=== PATIENT | female | born 1940 | race Caucasian/White ===

== ENCOUNTER 2019-09-28 09:01 | Day surgery (SDC) | payer MEDICARE, OTHER ==
[2019-09-27 14:01] VITALS: BMI 31.2
[~2019-09-28 09:01] MED LIST: Fluorouracil 100 MG, Enoxaparin Sodium 25 MG, EPINEPHrine 0.3 MG in Ophthalmic Irrigati... IRR SCH
[2019-09-28] MEDS ORDERED: Cyclopentolate 1% Opth Drop 2 ML BOT ONE (09:28)
[2019-09-28] MEDS ORDERED: Phenylephrine 2.5% Ophth Soln 5 ML BOT ONE (09:28)
[2019-09-28] MEDS ORDERED: Midazolam HCl 2 mg/2 ml Vial ONE ×2 (09:38→12:06)
[2019-09-28] MEDS ORDERED: Fentanyl 100 MCG/2 ML VIAL ONE (09:38)
[2019-09-28] MEDS ORDERED: PROPOFOL 20 ML ONE (09:38)
[2019-09-28] MEDS ORDERED: CEFAZOLIN 1 GM VIAL ONE (10:20)
[2019-09-28] MEDS ORDERED: Lidocaine 4% PF 5 ML AMP ONE (10:20)
[2019-09-28] MEDS ORDERED: PROPOFOL 200 MG/20 ML VIAL ONE (10:20)
[2019-09-28] MEDS ORDERED: Triamcinolone 40 MG/ML VIAL ONE (10:20)
[2019-09-28] MEDS ORDERED: Maxitrol 0.1% Opth Oint 3.5 GM TUBE ONE (10:20)
[2019-09-28] MEDS ORDERED: Bupivacaine PF 0.75% SDV 10 ML ONE (10:20)
[2019-09-28] MEDS ORDERED: Lidocaine 1% PF 5 ML VIAL ONE (10:20)
--- NOTE | 2019-09-28 19:04 | OP ---
DATE OF PROCEDURE: 09/28/2019 PREOPERATIVE DIAGNOSIS: Epiretinal membrane, vitreomacular traction, left eye. POSTOPERATIVE DIAGNOSIS: Epiretinal membrane, vitreomacular traction, left eye. PROCEDURES PERFORMED: Pars plana vitrectomy with epiretinal membrane peel, left eye. ANESTHESIA: Local with monitored anesthesia care. DESCRIPTION OF PROCEDURE: The patient was identified in the preoperative holding area. Appropriate informed consent for the planned surgical procedure on the left eye had been obtained. The patient was transported to the operative suite. Appropriate cardiopulmonary monitoring was established. Local anesthesia was obtained using retrobulbar block. The patient was prepped and draped in usual sterile manner for ophthalmic surgery on the left eye. Lid speculum was placed in the left eye. A 25-gauge trocar was placed in conjunctiva and sclera superotemporally, inferotemporally, and supranasally. Infusion line was placed inferotemporally. Light pipe and vitreous cutter were inserted into the eye. Core vitrectomy was performed. Posterior hyaloid face was noted to be rigidly adherent to the retina. Triamcinolone was introduced into the eye to allow visualization of the vitreous strands and a pick was used to incise and elevate the posterior hyaloid face. This was peeled across the macula and into the mid periphery. Indirect ophthalmoscopy was used to examine the retina 360 degrees. No holes, breaks, or tears were identified. Intravitreal triamcinolone was placed as was subconjunctival Ancef was placed. Trocar was removed. Eye was noted to retain pressure well. Eye was patched and shielded. The patient was taken to postoperative recovery unit in good condition, having suffered no immediate perioperative complications. The patient was instructed to keep patch and shield on, avoid lifting or bending, and followup appointment with Dr. Navarro. Job ID: [id number]
== END 2019-09-28 13:28 | disposition home or self-care (01) ==
LOC: SDC 09:01
PROVIDERS: ATTEND Ophthalmology Retina Specialist
PROC: 08T53ZZ Resection of Left Vitreous, Percutaneous Approach (ICD-10-PCS; principal; 2019-09-28)
PROC: 08NF3ZZ Release Left Retina, Percutaneous Approach (ICD-10-PCS; 2019-09-28)
DX: H35.372 Puckering of macula, left eye (principal); H43.822 Vitreomacular adhesion, left eye; I10 Essential (primary) hypertension; E11.9 Type 2 diabetes mellitus without complications; K21.9 Gastro-esophageal reflux disease without esophagitis; M19.90 Unspecified osteoarthritis, unspecified site; Z79.4 Long term (current) use of insulin; Z79.899 Other long term (current) drug therapy; Z88.1 Allergy status to other antibiotic agents; Z88.2 Allergy status to sulfonamides; Z88.8 Allergy status to other drugs, medicaments and biological substances
CPT/HCPCS: 36416; J0171; J0690; J1650; J2001; J2250; J2704; J3010; J3301; J3490; J9190

== ENCOUNTER 2021-12-08 09:34 | Outpatient (CLI) | payer MEDICARE, OTHER ==
[2021-12-08 19:25] LABS: SARS-CoV-2 PCR by NAA Not Detected (NotDetected)
== END 2021-12-08 09:35 | disposition home or self-care (01) ==
LOC: LABBT 09:34
PROVIDERS: ATTEND Ophthalmology Retina Specialist
DX: Z01.812 Encounter for preprocedural laboratory examination (principal); H35.342 Macular cyst, hole, or pseudohole, left eye; H54.7 Unspecified visual loss; Z20.822 Contact with and (suspected) exposure to COVID-19
CPT/HCPCS: U0003; U0005

== ENCOUNTER 2021-12-15 15:20 | Outpatient (CLI) | payer MEDICARE, OTHER ==
[2021-12-16 00:43] LABS: SARS-CoV-2 PCR by NAA Not Detected (NotDetected)
== END 2021-12-15 15:21 | disposition home or self-care (01) ==
LOC: LABBT 15:20
PROVIDERS: ATTEND Ophthalmology Retina Specialist
DX: Z01.812 Encounter for preprocedural laboratory examination (principal); H35.342 Macular cyst, hole, or pseudohole, left eye; Z20.822 Contact with and (suspected) exposure to COVID-19
CPT/HCPCS: U0003; U0005

== ENCOUNTER 2021-12-18 09:46 | Day surgery (SDC) | payer MEDICARE, OTHER ==
[2021-12-08 14:29] VITALS: BMI 27.3
[~2021-12-18 09:46] MED LIST changes: +Fentanyl 100 MCG/2 ML VIAL ONE; +Midazolam HCl 2 mg/2 ml Vial ONE; +PROPOFOL 20 ML ONE
[2021-12-18] MEDS ORDERED: Phenylephrine 2.5% Ophth Soln 5 ML BOT ONE (10:11)
[2021-12-18] MEDS ORDERED: Cyclopentolate 1% Opth Drop 2 ML BOT ONE (10:11)
[2021-12-18] MEDS ORDERED: Lidocaine 1% PF 5 ML VIAL ONE (13:00)
[2021-12-18] MEDS ORDERED: Lidocaine 4% PF 5 ML AMP ONE (13:00)
[2021-12-18] MEDS ORDERED: Maxitrol 0.1% Opth Oint 3.5 GM TUBE ONE (13:00)
[2021-12-18] MEDS ORDERED: Indocyanine Green 25 MG/10 ML VIAL ONE (13:00)
[2021-12-18] MEDS ORDERED: CEFAZOLIN 1 GM VIAL ONE (13:00)
[2021-12-18] MEDS ORDERED: Bupivacaine PF 0.75% SDV 10 ML ONE (13:00)
[2021-12-18] MEDS ORDERED: Enoxaparin Sodium 30 MG/0.3 ML SYRINGE ONE (13:00)
== END 2021-12-18 14:37 | disposition home or self-care (01) ==
LOC: SDC 09:46
PROVIDERS: ATTEND Ophthalmology Retina Specialist
PROC: 08T53ZZ Resection of Left Vitreous, Percutaneous Approach (ICD-10-PCS; principal; 2021-12-18)
PROC: 08NF3ZZ Release Left Retina, Percutaneous Approach (ICD-10-PCS; 2021-12-18)
DX: H35.342 Macular cyst, hole, or pseudohole, left eye (principal); I10 Essential (primary) hypertension; E11.9 Type 2 diabetes mellitus without complications; E03.9 Hypothyroidism, unspecified; K21.9 Gastro-esophageal reflux disease without esophagitis; K58.9 Irritable bowel syndrome, unspecified; Z79.4 Long term (current) use of insulin; Z79.890 Hormone replacement therapy; Z79.899 Other long term (current) drug therapy; Z88.1 Allergy status to other antibiotic agents; Z88.6 Allergy status to analgesic agent
CPT/HCPCS: 36416; 67025; J0171; J0690; J1650; J2250; J2704; J3010; J3490; J9190